=== PATIENT | female | born 1990 | race Two or more races ===

== ENCOUNTER 2021-01-06 08:12 | Observation (INO) | payer MEDICAID ==
[~2021-01-06] VITALS: Ht 152.4 cm; Wt 74.4 kg
== END 2021-01-06 10:20 | disposition home or self-care (01) ==
LOC: 8 EST LDRP 08:12
PROVIDERS: ADMIT Obstetrics & Gynecology; ATTEND Obstetrics & Gynecology
DX: O46.93 Antepartum hemorrhage, unspecified, third trimester (principal); Z3A.33 33 weeks gestation of pregnancy
CPT/HCPCS: 59025; 76805; 76818; G0378; 99281; G0379